=== PATIENT | male | born 1990 | race Caucasian/White ===

== ENCOUNTER → 2016-12-16 | Outpatient (CLI) | payer OTHER ==
[~2016-12-16] MED LIST: HMLI SC; INSDGI SC; LXP10 PO
[2016-12-16 11:17] LABS: BASO % 0.2 %; BASO ABS # 0.01 K/uL (0-0.2); COMPLETE YES; EOS % 0.3 %; HEMATOCRIT 41.5 % (42-52); IG% 0.3 %; LYMPH ABS # 1.19 K/uL (1.2-3.4); MEAN CELL VOLUME 84.7 fL (80-100); MEAN CORPUSCULAR HGB CONC 35.4 g/dl (32-36); MEAN PLATELET VOLUME 11.9 fL (7.4-10.4); MONO % 5.9 %; NEUT % 74.3 %; PLATELET COUNT 242 K/uL (130-400); WHITE BLOOD COUNT 6.27 K/uL (4.8-10.8)
[2016-12-16 11:32] LABS: ALT/SGPT 24 U/L (12-78); AST/SGOT 15 U/L (15-37); BLOOD UREA NITROGEN 8 mg/dl (7-18); BUN/CREATININE RATIO 10.4 (10-20); CALCIUM 9.8 mg/dl (8.5-10.1); CARBON DIOXIDE 29 mmol/L (21-32); CHLORIDE 103 mmol/L (98-107); GLUCOSE 137 mg/dl (70-99); SODIUM 141 mmol/L (136-145)
[2016-12-16 11:34] LABS: ALKALINE PHOSPHATASE 117 U/L (45-117)
[2016-12-16 12:58] LABS: ESTIMATED AVERAGE GLUCOSE 200 mg/dl; HA1C FLAG Normal (Normal)
== END | disposition home or self-care (01) ==
LOC: C.LAB1850 09:50
PROVIDERS: ATTEND Family Medicine
DX: E11.65 Type 2 diabetes mellitus with hyperglycemia (principal); E55.9 Vitamin D deficiency, unspecified; R04.0 Epistaxis

== ENCOUNTER → 2017-02-23 | Outpatient (CLI) | payer OTHER ==
[~2017-02-23] MED LIST changes: +ERGO500037 PO; +FLUO20CA35 PO; +METF-384 PO; +WLLSR150 PO
--- NOTE | 2017-02-23 19:22 | DIAGNOSTIC IMAGING REPORT ---
LEFT FOOT 3 VIEWS CLINICAL HISTORY: Left foot pain. No reported history of trauma. FINDINGS: 3 views of left foot are obtained. No prior studies are available for comparison at the time of dictation. The skeletal structures are well mineralized. No fracture is seen. The joint spaces of the foot are well-maintained. Mild degenerative spurring is seen along the dorsal aspect of the tarsal bones. The overlying soft tissues are within normal limits. IMPRESSION: No acute bony abnormality is seen in the left foot. Electronically signed by: Gerardo Blair M.D. 02/23/2017 7:19 PM Dictated Date/Time: 02/23/2017 7:18 PM
== END | disposition home or self-care (01) ==
LOC: C.RAD 18:27
PROVIDERS: ATTEND Physician Assistant Medical
DX: M79.672 Pain in left foot (principal)

== ENCOUNTER → 2017-08-11 | Outpatient (CLI) | payer OTHER ==
[~2017-08-11] MED LIST changes: -ERGO500037 PO; -FLUO20CA35 PO; -METF-384 PO; -WLLSR150 PO
[2017-08-11 15:39] LABS: URINE APPEARANCE CLEAR (CLEAR); URINE BILIRUBIN NEG (NEG); URINE COLOR YELLOW; URINE NITRITE NEG (NEG); URINE PH 7.5 (4.5-7.5); URINE SPECIFIC GRAVITY 1.037 (1.000-1.030); UROBILINOGEN NEG (NEG)
[2017-08-11 15:40] LABS: MANUAL MICROSCOPIC REQUIRED? NO; REVIEW REQ? NO
[2017-08-11 15:46] LABS: ALT/SGPT 26 U/L (12-78); BLOOD UREA NITROGEN 11 mg/dl (7-18); BUN/CREATININE RATIO 12.4 (10-20); CALCIUM 9.2 mg/dl (8.5-10.1); CARBON DIOXIDE 27 mmol/L (21-32); CHLORIDE 101 mmol/L (98-107); CREATININE 0.86 mg/dl (0.60-1.40); GLUCOSE 296 mg/dl (70-99); POTASSIUM 4.5 mmol/L (3.5-5.1); SODIUM 134 mmol/L (136-145)
[2017-08-11 15:49] LABS: ALKALINE PHOSPHATASE 138 U/L (45-117); AST/SGOT 16 U/L (15-37)
[2017-08-11 16:17] LABS: RATIO 4.3 mcg/mg (0-30.0)
[2017-08-12 07:48] LABS: ESTIMATED AVERAGE GLUCOSE 194 mg/dl; HA1C FLAG Normal (Normal)
== END | disposition home or self-care (01) ==
LOC: C.LAB1850 14:29
PROVIDERS: ATTEND Family Medicine
DX: E11.65 Type 2 diabetes mellitus with hyperglycemia (principal); E55.9 Vitamin D deficiency, unspecified; R10.9 Unspecified abdominal pain

== ENCOUNTER 2017-08-17 17:35 | Emergency (ER) | payer OTHER ==
[~2017-08-17] VITALS: Ht 185.4 cm; Wt 150.8 kg
[2017-08-17 17:39] VITALS: TEMP 36.9; Ht 185.4 cm; Wt 150.8 kg
[2017-08-17] MEDS ORDERED: HYDROCODONE/ACETAMOPHEN 5/325MG TAB PO STA (17:47)
[2017-08-17] MEDS ORDERED: FLUO20CA35 PO (18:51)
[2017-08-17] MEDS ORDERED: ERGO500037 PO (18:51)
[2017-08-17] MEDS ORDERED: WLLSR150 PO (18:51)
[2017-08-17] MEDS ORDERED: METF-384 PO (18:51)
--- NOTE | 2017-08-17 19:09 | DIAGNOSTIC IMAGING REPORT ---
L HAND MIN 3 VIEWS ROUTINE HISTORY: 27 years-old Male hand injury/pain acute left hand pain status post trauma COMPARISON: Left hand radiographs 12/22/2015 TECHNIQUE: 3 views of the left hand FINDINGS: Studies mildly limited secondary to mild flexion of the interphalangeal joints throughout all the images. 2 mm corticated bone fragment adjacent to the ulnar styloid is unchanged suggesting accessory ossicle or remote fracture. No acute fracture, dislocation or significant degenerative changes. There is mild soft tissue swelling about the hand, greatest at the metacarpophalangeal joints. IMPRESSION: Soft tissue swelling without acute bony abnormality. The above report was generated using voice recognition software. It may contain grammatical, syntax or spelling errors. Electronically signed by: Jenaro Sebastian M.D. 08/17/2017 7:08 PM Dictated Date/Time: 08/17/2017 7:06 PM
--- NOTE | 2017-08-17 19:16 | EMERGENCY ROOM VISIT NOTE ---
ED Visit Note First contact with patient: 17:41 CHIEF COMPLAINT: Left Hand injury HISTORY OF PRESENT ILLNESS: This 27-year-old male patient injured the left hand while he was at work today. The patient states that he got it caught the between 2 kegs.. The pain is constant, moderate, and worse with any movement of the hand. There was no audible cracking sound at the time of the injury. The patient states that he has numbness at the tips of all fingers. He states it is difficult and painful to extend his fingers. The patient's tetanus is up-to- date. The patient is right-hand dominant. REVIEW OF SYSTEMS: 6 system review was performed and was negative unless stated otherwise in history of present illness. PMH: The patient is healthy; diabetic SOCIAL HISTORY: Patient lives with his parents. The patient admits to tobacco use and occasional alcohol use. PHYSICAL EXAM: Vital Signs: Were reviewedReviewed Nurse's notes. GEN.: 27-year- old white male appears in no acute distress. MENTAL Status: Alert and oriented 3. LEFT HAND: There is a hematoma noted over the dorsal aspect of the hand .the patient is tender to palpation over this area. The patient has no gross bony deformity noted. He is a superficial cut over the PIP joint of the third digit. The patient is able to flex and extend his fingers but it is painful. EMERGENCY DEPARTMENT COURSE: The patient was evaluated. The patient was given [place] 5/325 mg one tablet by mouth for pain. X-ray of the left hand was ordered interpreted by the radiologist and myself. DIAGNOSTICS:L HAND MIN 3 VIEWS ROUTINE HISTORY: 27 years-old Male hand injury/pain acute left hand pain status post trauma COMPARISON: Left hand radiographs 12/22/2015 TECHNIQUE: 3 views of the left hand FINDINGS: Studies mildly limited secondary to mild flexion of the interphalangeal joints throughout all the images. 2 mm corticated bone fragment adjacent to the ulnar styloid is unchanged suggesting accessory ossicle or remote fracture. No acute fracture, dislocation or significant degenerative changes. There is mild soft tissue swelling about the hand, greatest at the metacarpophalangeal joints. IMPRESSION: Soft tissue swelling without acute bony abnormality. The above report was generated using voice recognition software. It may contain grammatical, syntax or spelling errors. Electronically signed by: Jenaro Sebastian M.D. The patient was informed of the findings. Antibiotic ointment and a bandage was placed on the abrasion. The patient was discharged home in stable condition. DIAGNOSIS: Left Hand contusion DISCHARGE INSTRUCTIONS & TREATMENT: Rest the hand for 2 days. Tylenol 500 mg every 4-6 hours as needed for pain. Any signs of infection, follow-up with your family doctor for antibiotic treatment. If symptoms are not improving in 2 -3 days, follow-up with your family physician. Problem List Medical Problems: (1) Asthma Status: Chronic (2) Depression Status: Chronic (3) Diabetes mellitus Status: Chronic (4) Medication refill Status: Resolved Current/Historical Medications Scheduled Bupropion HCl (Bupropion HCl Sr), 150 MG PO DAILY Ergocalciferol (Vitamin D 97325 Unit), 50,000 UNIT PO 3XWK Fluoxetine (Prozac), 20 MG PO QAM Insulin Glargine (Lantus), 40 UNITS SC BID Insulin Lispro (Humalog), UNITS SC AC Metformin Hcl (Glucophage), 1,000 MG PO BID Allergies Coded Allergies: Ibuprofen (Verified Allergy, Intermediate, hives, 08/17/17) Cefaclor (Verified Allergy, Unknown, ., 08/17/17) Vital Signs Date Time Temp Pulse Resp B/P (MAP) Pulse Ox O2 Delivery O2 Flow Rate FiO2 08/17/17 17:39 36.9 84 18 159/88 97 Room Air Medications Administered Medications (Trade) Dose Ordered Sig/Jono Route Start Time Stop Time Status Last Admin Dose Admin Acetaminophen/ Hydrocodone Bitart ([place] 5/325 Tab) 1 tab NOW STAT PO 08/17/17 17:47 08/17/17 17:51 DC 08/17/17 18:05 1 TAB Departure Information Referrals Charanjit Reddy M.D. (PCP) Patient Instructions [facility]
[2017-08-17 19:30] VITALS: BP 149/97; PULSE 77; O2SAT 97
== END 2017-08-17 19:31 | disposition home or self-care (01) ==
LOC: C.EDB 17:37 → C.EDD 19:31
DX: S60.222A Contusion of left hand, initial encounter (principal); W23.1XXA Caught, crushed, jammed, or pinched between stationary objects, initial encounter; Y99.0 Civilian activity done for income or pay; S60.413A Abrasion of left middle finger, initial encounter; E11.9 Type 2 diabetes mellitus without complications; F17.200 Nicotine dependence, unspecified, uncomplicated; J45.909 Unspecified asthma, uncomplicated; F32.9 Major depressive disorder, single episode, unspecified; Z79.4 Long term (current) use of insulin; Z79.84 Long term (current) use of oral hypoglycemic drugs

== ENCOUNTER → 2017-11-24 | Outpatient (CLI) | payer OTHER ==
[~2017-11-24] MED LIST changes: +ERGO500037 PO; +FLUO20CA35 PO; -LXP10 PO; +METF-384 PO; +WLLSR150 PO
[2017-11-24 12:57] LABS: ALBUMIN 3.8 gm/dl (3.4-5.0); ALKALINE PHOSPHATASE 147 U/L (45-117); ALT/SGPT 30 U/L (12-78); AST/SGOT 15 U/L (15-37); BLOOD UREA NITROGEN 11 mg/dl (7-18); CALCIUM 9.1 mg/dl (8.5-10.1); CARBON DIOXIDE 25 mmol/L (21-32); CREATININE 0.88 mg/dl (0.60-1.40); GLUCOSE 394 mg/dl (70-99); POTASSIUM 4.5 mmol/L (3.5-5.1); SODIUM 131 mmol/L (136-145); TOTAL PROTEIN 7.7 gm/dl (6.4-8.2)
== END | disposition home or self-care (01) ==
LOC: C.LAB1850 10:30
PROVIDERS: ATTEND Family Medicine
DX: E10.9 Type 1 diabetes mellitus without complications (principal); E55.9 Vitamin D deficiency, unspecified

== ENCOUNTER 2018-03-11 21:17 | Emergency (ER) | payer OTHER ==
[~2018-03-11] VITALS: Ht 185.4 cm; Wt 152.6 kg
[2018-03-11 21:21] VITALS: TEMP 36.9; Ht 185.4 cm; Wt 152.6 kg
[2018-03-11] MEDS ORDERED: FLUO20CA36 PO (22:06)
[2018-03-11] MEDS ORDERED: INSU100I2 SC (22:06)
[2018-03-11] MEDS ORDERED: PRZ/40 PO (22:06)
[2018-03-11] MEDS ORDERED: WLLSR100 PO (22:06)
[2018-03-11] MEDS ORDERED: INSU100I23 SC (22:08)
[2018-03-11 22:24] VITALS: O2SAT 98
[2018-03-11 22:33] LABS: BASO % 0.3 %; BASO ABS # 0.03 K/uL (0-0.2); EOS % 0.6 %; EOS ABS # 0.05 K/uL (0-0.5); IG# 0.03 K/uL (0.00-0.02); LYMPH % 22.8 %; LYMPH ABS # 1.99 K/uL (1.2-3.4); MEAN CORPUSCULAR HEMOGLOBIN 29.4 pg (25-34); MEAN PLATELET VOLUME 11.3 fL (7.4-10.4); MONO % 6.8 %; MONO ABS # 0.59 K/uL (0.11-0.59); NEUT % 69.2 %; NEUT ABS # 6.02 K/uL (1.4-6.5); PLATELET COUNT 248 K/uL (130-400); RED CELL DISTRIBUTION WIDTH CV 12.8 % (11.5-14.5); RED CELL DISTRIBUTION WIDTH SD 38.7 fL (36.4-46.3); WHITE BLOOD COUNT 8.71 K/uL (4.8-10.8)
--- NOTE | 2018-03-11 22:45 | DIAGNOSTIC IMAGING REPORT ---
CHEST ONE VIEW PORTABLE HISTORY: 27 years-old Male CHEST PAIN acute atypical chest pain COMPARISON: Chest radiograph 10/10/2011 TECHNIQUE: Portable AP view of the chest FINDINGS: Cardiomediastinal and hilar silhouettes are within normal limits. No pneumothorax, pleural effusion, focal airspace consolidation or overt pulmonary edema. Bones of the chest appear grossly intact. IMPRESSION: No acute process. The above report was generated using voice recognition software. It may contain grammatical, syntax or spelling errors. Electronically signed by: Jenaro Sebastian M.D. 03/11/2018 10:44 PM Dictated Date/Time: 03/11/2018 10:43 PM
[2018-03-11 22:50] LABS: ALBUMIN 3.8 gm/dl (3.4-5.0); ALT/SGPT 28 U/L (12-78); AST/SGOT 16 U/L (15-37); BLOOD UREA NITROGEN 8 mg/dl (7-18); CALCIUM 9.5 mg/dl (8.5-10.1); CARBON DIOXIDE 29 mmol/L (21-32); CREATININE 0.75 mg/dl (0.60-1.40); GLUCOSE 102 mg/dl (70-99); LIPASE 163 U/L (73-393); POTASSIUM 3.7 mmol/L (3.5-5.1); SODIUM 138 mmol/L (136-145)
[2018-03-11] MEDS ORDERED: GLC/500 PO (22:55)
[2018-03-11] MEDS ORDERED: INSPMPHMLG (22:55)
[2018-03-11] MEDS ORDERED: ERGO500037 PO (22:55)
[2018-03-11 23:02] LABS: ALKALINE PHOSPHATASE 137 U/L (45-117); TOTAL PROTEIN 7.7 gm/dl (6.4-8.2)
--- NOTE | 2018-03-11 23:44 | EMERGENCY ROOM VISIT NOTE ---
History First contact with patient: 21:57 Chief Complaint: CARDIAC ASSESSMENT Stated Complaint: CHEST PAIN ON RIGHT SIDE,DIZZINESS Nursing Triage Summary: pt c/o right sided chest pain and intermittent dizziness that began at 2pm. denies sob. pt breathing WNL, ambulatory independently, alert and oriented x4. History of Present Illness The patient is a 27 year old male who presents to the Emergency Room with complaints of intermittent right-sided chest pain for the past day and last for about 5 minutes. Nothing makes it better or worse. No pain currently. It did feel like stabbing 5 out of 10 when present per patient. It did not radiate. Patient states he felt slightly lightheaded today and it lasted for about 15-20 minutes. Blood sugars have been around 200. This is about normal for him. Patient denies exertional chest pain, dyspnea, fever, chills, localized weakness , vision problems, balance problems, cold symptoms, neck stiffness, abdominal pain, leg pain or swelling, recent travel. No history of blood pressure cholesterol. Family history of heart disease or blood clots. Patient does chew tobacco. No illegal drug use. No other complaints per patient. Patient states he is eating and drinking normally. Review of Systems An 10 system review of systems was completed with positives and pertinent negatives listed in the HPI. Past Medical/Surgical History Medical Problems: (1) Asthma (2) Depression (3) Diabetes mellitus (4) Medication refill Family History Diabetes mellitus Hypertension Social History Smoking Status: Never Smoker Marital Status: single Housing Status: lives with family Occupation Status: employed Current/Historical Medications Scheduled Bupropion HCl (Bupropion HCl Sr), 1 TAB PO DAILY Ergocalciferol (Vitamin D 99512 Unit), 50,000 UNIT PO 3XWK Fluoxetine HCl (Fluoxetine HCl), 1 CAP PO DAILY Fluoxetine Hcl (Prozac), 1 CAP PO DAILY Insulin Human Lispro (Insulin Humalog Pump ), 1 EA N/A UD Metformin Hcl (Glucophage), 1,000 MG PO BID Physical Exam Vital Signs Date Time Temp Pulse Resp B/P (MAP) Pulse Ox O2 Delivery O2 Flow Rate FiO2 03/11/18 22:25 77 16 128/83 98 Room Air 03/11/18 22:24 98 Room Air 03/11/18 22:22 83 03/11/18 21:21 36.9 87 18 147/86 97 Room Air Physical Exam VITALS: Vitals are noted on the nurse's note and reviewed by myself. Vital signs hypertensive. GENERAL: Pleasant, in no acute distress, nondiaphoretic, well-developed well- nourished. SKIN: The skin was without rashes, erythema, edema, or bruising. There is no tenting of the skin. Capillary reflex less than 2 seconds. HEAD: Normocephalic atraumatic. EARS: External auditory canals clear, tympanic membranes pearly ann without erythema or effusion bilaterally. EYES: Pupils equal round and reactive to light and accommodation. Conjunctivae without injection, sclerae without icterus. Extraocular movements intact. NOSE: Patent, turbinates without inflammation or discharge. No sinus tenderness. MOUTH: Mucous membranes moist. Pharynx without erythema or exudate. Uvula midline. Airway patent. Tongue does not deviate. NECK: Supple without nuchal rigidity. No lymphadenopathy. No thyromegaly. Cervical spine is nontender. No JVD. HEART: Regular rate and rhythm without murmurs gallops or rubs. Chest nontender to palpation LUNGS: Clear to auscultation bilaterally without wheezes, rales or rhonchi. No retractions or accessory muscle use. ABDOMEN: Positive bowel sounds x 4. Normal tympanic percussion. Soft, nontender, without masses or organomegaly. Juárez sign negative. No guarding or rebound tenderness. No CVA tenderness MUSCULOSKELETAL: No muscle atrophy, erythema, or edema noted. NEURO: Patient was alert and oriented to person place and time. Normal sensation to light and sharp touch. No focal neurological deficits. Cranial nerves II through XII grossly intact. No prior drift. Cerebellar exam intact. No nystagmus. Medical Decision & Procedures Laboratory Results 03/11/18 22:20 Red Blood Count 4.76, Mean Corpuscular Volume 84.0, Mean Corpuscular Hemoglobin 29.4, Mean Corpuscular Hemoglobin Concent 35.0, Mean Platelet Volume 11.3, Neutrophils (%) (Auto) 69.2, Lymphocytes (%) (Auto) 22.8, Monocytes (%) (Auto) 6.8, Eosinophils (%) (Auto) 0.6, Basophils (%) (Auto) 0.3, Neutrophils # (Auto) 6.02, Lymphocytes # (Auto) 1.99, Monocytes # (Auto) 0.59, Eosinophils # (Auto) 0.05, Basophils # (Auto) 0.03 03/11/18 22:20 Test 03/11/18 22:20 03/11/18 22:25 White Blood Count 8.71 K/uL (4.8-10.8) Red Blood Count 4.76 M/uL (4.7-6.1) Hemoglobin 14.0 g/dL (14.0-18.0) Hematocrit 40.0 % (42-52) Mean Corpuscular Volume 84.0 fL (80-100) Mean Corpuscular Hemoglobin 29.4 pg (25-34) Mean Corpuscular Hemoglobin Concent 35.0 g/dl (32-36) Platelet Count 248 K/uL (130-400) Mean Platelet Volume 11.3 fL (7.4-10.4) Neutrophils (%) (Auto) 69.2 % Lymphocytes (%) (Auto) 22.8 % Monocytes (%) (Auto) 6.8 % Eosinophils (%) (Auto) 0.6 % Basophils (%) (Auto) 0.3 % Neutrophils # (Auto) 6.02 K/uL (1.4-6.5) Lymphocytes # (Auto) 1.99 K/uL (1.2-3.4) Monocytes # (Auto) 0.59 K/uL (0.11-0.59) Eosinophils # (Auto) 0.05 K/uL (0-0.5) Basophils # (Auto) 0.03 K/uL (0-0.2) RDW Standard Deviation 38.7 fL (36.4-46.3) RDW Coefficient of Variation 12.8 % (11.5-14.5) Immature Granulocyte % (Auto) 0.3 % Immature Granulocyte # (Auto) 0.03 K/uL (0.00-0.02) Anion Gap 6.0 mmol/L (3-11) Est Creatinine Clear Calc Drug Dose 230.0 ml/min Estimated GFR () 146.7 Estimated GFR (Non- 126.6 BUN/Creatinine Ratio 10.1 (10-20) Calcium Level 9.5 mg/dl (8.5-10.1) Magnesium Level 1.9 mg/dl (1.8-2.4) Total Bilirubin 0.3 mg/dl (0.2-1) Direct Bilirubin < 0.1 mg/dl (0-0.2) Aspartate Amino Transf (AST/SGOT) 16 U/L (15-37) Alanine Aminotransferase (ALT/SGPT) 28 U/L (12-78) Alkaline Phosphatase 137 U/L (45-117) Total Protein 7.7 gm/dl (6.4-8.2) Albumin 3.8 gm/dl (3.4-5.0) Lipase 163 U/L (73-393) Thyroid Stimulating Hormone (TSH) 2.810 uIu/ml (0.300-4.500) Bedside D-Dimer 95 ng/mlFEU (0-450) Bedside Troponin I < 0.030 ng/ml (0-0.045) ED Course Prior records/ancillary studies reviewed. Triage Nursing notes reviewed. Additional history obtained from family. The patient's history was concerning for chest pain with a brief episode of lightheadedness that is now resolved. Differential diagnosis: Etiologies such as cardiac ischemia, aortic dissection, pulmonary embolism, pneumonia, pneumothorax, musculoskeletal, infections, pericarditis, myocarditis , esophageal rupture, gastrointestinal, as well as others were entertained. Physical examination: As above. ER treatment provided: Patient was observed On reassessment the patient felt better. Diagnostic interpretation by me: The electrocardiogram was normal sinus, incomplete right bundle branch block, no acute ST-T wave changes, rate is 70. Impression incomplete right bundle branch block interpreted by myself The labs revealed no worrisome leukocytosis. Negative d-dimer. Negative troponin Imaging studies: Chest x-ray with no acute consolidation, pneumothorax or free of my interpretation HEART SCORE: Hx: high/mod/low suspicion: 0 ECG: ST depression/nonspecific changes/normal: 0 Age: Greater than 65/45-64/less than 45: 0 Risk factors: (Hypertension, hyperlipidemia, diabetes, coronary disease, tobacco use, cocaine use): 2 Troponin: Greater than 2 times normal limits/1-2 times normal limits/normal: 0 Total: 2 The pulmonary embolism rule out criteria (PERC rule) Age <50 years 0 Heart rate <100 bpm 0 Oxyhemoglobin saturation =95% 0 No hemoptysis 0 No estrogen use 0 No prior DVT or PE 0 No unilateral leg swelling 0 No surgery/trauma requiring hospitalization within the prior four weeks 0 (0 low risk) Total: 0 Exam and history seem consistent with noncardiac chest pain. This could be stress and anxiety related. Patient had a negative PERC score. Heart score was low. He had a negative troponin. Negative d-dimer. Patient was advised to rest, decrease stress and monitor his blood sugars. Patient in no acute findings in the above workup. He is well-appearing. He is advised to follow- up family care in a few days here in the ER sooner for chest pain, difficulty breathing, worsening signs or symptoms or as needed. Patient was neurovascularly and neurologically intact. He was advised to monitor his blood pressure and blood sugars. By the evaluation outlined above emergent etiologies such as cardiac ischemia, aortic dissection, pulmonary embolism, pneumonia, pneumothorax, infections, pericarditis, myocarditis, gastrointestinal, as well as others were deemed relatively unlikely. The pt informed about the findings as listed above. All questions were answered and pleased with the treatment. Return instructions were outlined and the patient was discharged in stable condition. Referral: The patient was referred back to primary care physician for follow-up in 2 to 3 days for a recheck of the current condition. Case reviewed with my attending The chart was completed utilizing [employer] Speech voice recognition software. Grammatical errors, random word insertions, pronoun errors, and incomplete sentences are an occassional consequence of this system due to software limitations, ambient noise, and hardware issues. Any formal questions or concerns about the content, text, or information contained within the body of this dictation should be directly addressed to the physician visitor service assistant for clarification. Medical Decision As above Medication Reconcilliation Current Medication List: was personally reviewed by me Blood Pressure Screening Patient's blood pressure: Elevated blood pressure Blood pressure disposition: Elevated BP felt to be situational Impression Primary Impression: Right-sided chest pain Additional Impression: Lightheadedness Departure Information Dispostion Home / Self-Care Condition GOOD Referrals Charanjit Reddy M.D. (PCP) Patient Instructions My [email or web address] Additional Instructions Monitor your blood pressure and blood sugars. They were high. Acetaminophen(Tylenol) may be used for fever or pain. Use 1000mg every six hours as needed. Avoid using more than 3000mg in a 24 hour period. Rest and drink plenty of fluids as tolerated. Continue current medications. Avoid strenuous activities and anything that worsens your pain. Resume normal activities once your symptoms resolve. Return to the ER immediately for worsening or persistent chest pain, abdominal pain, vomiting, fevers, chest pains, difficulty breathing, worsening of your condition, or as needed. Follow up with your primary physician in 2-3 days for a recheck of your current condition. Problem Qualifiers
[2018-03-11 23:51] VITALS: BP 130/67; PULSE 76; O2SAT 99
== END 2018-03-12 | disposition home or self-care (01) ==
LOC: C.EDB 21:18 → C.EDA 03-12
DX: R07.9 Chest pain, unspecified (principal); R42 Dizziness and giddiness; J45.909 Unspecified asthma, uncomplicated; E11.9 Type 2 diabetes mellitus without complications; F32.9 Major depressive disorder, single episode, unspecified; F17.220 Nicotine dependence, chewing tobacco, uncomplicated; Z96.41 Presence of insulin pump (external) (internal); Z83.3 Family history of diabetes mellitus; Z82.49 Family history of ischemic heart disease and other diseases of the circulatory system; Z79.84 Long term (current) use of oral hypoglycemic drugs; Z79.899 Other long term (current) drug therapy

== ENCOUNTER → 2018-06-24 | Outpatient (CLI) | payer OTHER ==
[~2018-06-24] MED LIST changes: -FLUO20CA35 PO; +FLUO20CA36 PO; +GLC/500 PO; -HMLI SC; -INSDGI SC; +INSPMPHMLG; -METF-384 PO; +PRZ/40 PO; +WLLSR100 PO; -WLLSR150 PO
[2018-06-24 17:25] LABS: ALBUMIN 4.1 gm/dl (3.4-5.0); ALKALINE PHOSPHATASE 155 U/L (45-117); ALT/SGPT 25 U/L (12-78); AST/SGOT 11 U/L (15-37); BLOOD UREA NITROGEN 8 mg/dl (7-18); CALCIUM 9.6 mg/dl (8.5-10.1); CARBON DIOXIDE 26 mmol/L (21-32); CHOLESTEROL 178 mg/dl (0-200); CREATININE 0.74 mg/dl (0.60-1.40); GLUCOSE 50 mg/dl (70-99); LDL CHOLESTEROL CALCULATED 106 mg/dl; POTASSIUM 4.1 mmol/L (3.5-5.1); SODIUM 139 mmol/L (136-145); TOTAL PROTEIN 8.3 gm/dl (6.4-8.2)
[2018-06-25 05:48] LABS: HEMOGLOBIN A1C 8.3 % (4.5-5.6)
== END | disposition home or self-care (01) ==
LOC: C.LAB1850 13:36
PROVIDERS: ATTEND Family Medicine
DX: E78.5 Hyperlipidemia, unspecified (principal); E55.9 Vitamin D deficiency, unspecified; E10.9 Type 1 diabetes mellitus without complications